=== PATIENT | female | born 1995 | race Caucasian/White ===

== ENCOUNTER 2021-06-07 07:51 | Day surgery (SDC) | payer MEDICAID, SELFPAY ==
[~2021-06-07] VITALS: Ht 160 cm; Wt 88.0 kg
[2021-06-07 08:24] LABS: HCG,QUAL RESULT NEGATIVE (NEGATIVE)
[2021-06-07] MEDS ORDERED: MEPERIDINE 100 MG INJ. 100 MG/ML VIAL ONE (10:05)
[2021-06-07] MEDS ORDERED: MIDAZOLAM HCL 5 MG/5 ML VIAL ONE (10:05)
[2021-06-07] MEDS ORDERED: BENZOCAINE 20% 0.5mL UD SPRAY MM ONE (10:06)
[2021-06-07 13:26] VITALS: BP_SYST 101
== END 2021-06-07 11:20 | disposition home or self-care (01) ==
LOC: SDS 07:51 → SMU 07:53 → SDS 11:20
PROVIDERS: ATTEND Internal Medicine
DX: R10.13 Epigastric pain (principal); K29.70 Gastritis, unspecified, without bleeding; K21.9 Gastro-esophageal reflux disease without esophagitis; Z79.899 Other long term (current) drug therapy; Z20.822 Contact with and (suspected) exposure to COVID-19
CPT/HCPCS: 36415 ×2; 43239; 84703; 87081; 87426; 88305; 88312; 88313; 96365; 99152; G0378; J2175; J2250

== ENCOUNTER 2021-06-08 18:42 | Emergency (ER) | payer MEDICAID, SELFPAY ==
[~2021-06-08] VITALS: Ht 160 cm; Wt 88.0 kg
[2021-06-08 18:54] VITALS: BP_SYST 132
--- NOTE | 2021-06-08 19:00 | NUR ---
Patient triaged and placed in waiting room. VSS and patient appears in no acute distress at this time. Accompanied by self , awaiting available bed, and MD notified of need for MSE.
--- NOTE | 2021-06-08 20:40 | NUR ---
called pt name in the waiting room.No answer.
--- NOTE | 2021-06-08 20:45 | NUR ---
called pt name in the waiting room.No answer.
--- NOTE | 2021-06-08 20:50 | NUR ---
called pt name in the waiting room.No answer.
== END 2021-06-08 20:50 | disposition left against medical advice (07) ==
LOC: SED 18:42
DX: G89.18 Other acute postprocedural pain (principal); R10.13 Epigastric pain; Z53.21 Procedure and treatment not carried out due to patient leaving prior to being seen by health care provider